=== PATIENT | female | born 1985 | race Two or more races ===

== ENCOUNTER 2024-03-11 11:33 | Day surgery (SDC) | payer OTHER ==
[2024-03-11] MEDS ORDERED: CEFAZOLIN SODIUM 1,000 MG VIAL IV ONE (17:45)
[2024-03-11] MEDS ORDERED: POVIDONE-IODINE 118 ML BOTT TOP ONE (17:45)
[2024-03-11] MEDS ORDERED: VISTASEAL DUAL APPICATOR 1 EACH APPL TOP ONE (19:15)
[2024-03-11] MEDS ORDERED: THROMBIN,HU/FIBRINOGEN/CALCIUM 10 ML SYRINGE TOP ONE (19:15)
[2024-03-11] MEDS ORDERED: MEPERIDINE HCL/PF 50 MG/ML VIAL IV ONE (19:45)
[2024-03-11] MEDS ORDERED: KETOROLAC TROMETHAMINE 60 MG VIAL IM ONE (20:00)
[2024-03-11] MEDS ORDERED: PROMETHAZINE HCL 50 MG/ML AMPUL IM ONE (20:00)
[2024-03-11] MEDS ORDERED: SUGAMMADEX SODIUM 200 MG/2 ML VIAL IV ONE (20:15)
== END 2024-03-11 22:21 | disposition home or self-care (01) ==
LOC: CIR.AMB 11:33
PROVIDERS: ATTEND Specialist
DX: N83.291 Other ovarian cyst, right side (principal); R10.2 Pelvic and perineal pain; N73.6 Female pelvic peritoneal adhesions (postinfective); N94.89 Other specified conditions associated with female genital organs and menstrual cycle